=== PATIENT | female | born 1985 | race Caucasian/White ===

== ENCOUNTER 2020-03-21 08:22 | Emergency (ER) | payer MEDICAID ==
[~2020-03-21] VITALS: Ht 172.7 cm; Wt 89.7 kg
[2020-03-21 08:33] VITALS: BP 124/94
== END 2020-03-21 09:54 | disposition home or self-care (01) ==
LOC: ED 09:18
DX: L03.112 Cellulitis of left axilla (principal); R94.31 Abnormal electrocardiogram [ECG] [EKG]; I10 Essential (primary) hypertension
CPT/HCPCS: 82962; 93005; 99283

== ENCOUNTER 2021-01-26 06:34 | Emergency (ER) | payer OTHER ==
[~2021-01-26] VITALS: Ht 172.7 cm; Wt 87.0 kg
[2021-01-26 06:36] VITALS: BP 135/83
--- NOTE | 2021-01-26 06:43 | NUR ---
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 states this has all recently developed. denies body aches or fatigue. pt placed on monitoring, provided warm blankets for comfort. Patient is resting comfortably in bed. Bed in lowest, rails engaged, call light on lap. Vital Signs within normal limits. WCTM.
--- NOTE | 2021-01-26 06:47 | NUR ---
report to margarette pichardo, pt care transferred at this time.
[2021-01-26] MEDS ORDERED: LISI-170 PO (06:51)
--- NOTE | 2021-01-26 07:23 | NUR ---
Patient given discharge instructions and RX, they have confirmed that they understand the instructions. Patient ambulatory with steady gait.
== END 2021-01-26 07:24 | disposition home or self-care (01) ==
LOC: ED 07:15
DX: H60.92 Unspecified otitis externa, left ear (principal); J02.9 Acute pharyngitis, unspecified; I10 Essential (primary) hypertension
CPT/HCPCS: 99283